=== PATIENT | female | born 1995 | race Caucasian/White ===

== ENCOUNTER 2017-06-16 09:42 | Emergency (ER) | payer OTHER, BC ==
[~2017-06-16] VITALS: Ht 160 cm; Wt 65.9 kg
[2017-06-16 09:52] VITALS: BP 133/83; PULSE 67; TEMP 98.2
[2017-06-16] MEDS ORDERED: BIRTH CONTROL (09:55)
[2017-06-16] MEDS ORDERED: MOBIC 7.5MG7.5 MG PO (10:55)
[2017-06-16] MEDS ORDERED: FLEXERIL5 MG PO (10:55)
== END 2017-06-16 11:03 | disposition home or self-care (01) ==
LOC: COL.ER 09:42
DX: M25.512 Pain in left shoulder (principal); R25.2 Cramp and spasm; X50.0XXA Overexertion from strenuous movement or load, initial encounter